=== PATIENT | female | born 1995 | race African-American/Black ===

== ENCOUNTER 2022-10-06 13:25 | Emergency (ER) | payer OTHER ==
[2022-10-06 13:33] VITALS: BP 117/71; PULSE 88; RESP 18; TEMP 98.4; BMI 19.1
== END 2022-10-06 17:04 | disposition home or self-care (01) ==
LOC: JERFT 13:25
DX: M54.50 Low back pain, unspecified (principal); M41.115 Juvenile idiopathic scoliosis, thoracolumbar region
CPT/HCPCS: 72100-TC-FY; 99283-25